=== PATIENT | male | born 1985 | race Caucasian/White ===

== ENCOUNTER 2019-12-17 04:26 | Emergency (ER) | payer BC, OTHER ==
[2019-12-17 04:54] LABS: CHLORIDE,CL 102 mmol/L (98-107); SODIUM,NA 139 mmol/L (136-145)
[2019-12-17] MEDS: Iopamidol 612 MG/ML 100 ML Bottle ONE (05:15)
[2019-12-17] MEDS ORDERED: Morphine 10 MG/ML SDV ONE ×2 (05:51→05:55)
[2019-12-17] MEDS: Iopamidol 612 MG/ML 100 ML Bottle IVPUSH ONE (06:00)
[2019-12-17] MEDS ORDERED: Sodium Chloride 0.9% 1,000 ML IV ONE (06:03)
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
[2019-12-19] MEDS: Iopamidol 612 MG/ML 100 ML Bottle ONE ×2 (11:10→11:21)
[2019-12-19] MEDS: Iopamidol 612 MG/ML 100 ML Bottle IVPUSH ONE (11:11)
== END 2019-12-17 07:30 ==
LOC: LL.ED 04:26
DX: S51.812A Laceration without foreign body of left forearm, initial encounter (principal); S20.212A Contusion of left front wall of thorax, initial encounter; S00.83XA Contusion of other part of head, initial encounter; S36.899A Unspecified injury of other intra-abdominal organs, initial encounter; R59.0 Localized enlarged lymph nodes; F10.10 Alcohol abuse, uncomplicated; F17.200 Nicotine dependence, unspecified, uncomplicated; V69.9XXA Occupant (driver) (passenger) of heavy transport vehicle injured in unspecified traffic accident, initial encounter
CPT/HCPCS: 36415; 70450; 71260; 72125; 72170; 74177; 80053; 80307; 83605; 85025; 93005; 93010; 96374; 99285; J2270; Q9967